=== PATIENT | male | born 1950 | race Caucasian/White ===

== ENCOUNTER 2017-10-30 11:16 | Emergency (ER) | payer OTHER ==
[2017-10-30 12:19] LABS: #Basophils 0.1 thou/uL (0.0-0.2); #Eosinphils 0.1 thou/uL (0.0-0.7); #Lymphocytes 1.2 thou/uL (1.20-3.40); #Monocytes 0.6 thou/uL (0.11-0.59); #Neutrophils 5.5 thou/uL (1.40-6.50); %Basophils 0.7 % (0.0-1.0); %Eosinophils 1.1 % (0.0-10.0); %Lymphocytes 15.5 % (21.0-51.0); %Monocytes 8.5 % (0.0-10.0); %Neutrophils 74.1 % (42.0-75.0); Hemoglobin 15.4 g/dL (14.0-18.0); Mean Corpuscular HGB CONC 33.6 g/dL (32.0-36.0); Mean Corpuscular Hemoglobin 30.1 pg (27.0-31.0); Mean Corpuscular Volume 89.7 fL (78.0-98.0); Mean Platelet Volume 8.1 fL (7.4-10.4); Platelet Count 192 thou/uL (130-400); RBC Distribution Width 10.5 % (11.5-14.5); Red Blood Cell (RBC) Count 5.11 mill/uL (4.70-6.10); White Blood Cell (WBC) Count 7.4 thou/uL (4.8-10.8)
[2017-10-30 12:33] LABS: ALT (SGPT) 18 U/L (8-55); AST (SGOT) 19 U/L (5-34); Albumin 4.2 g/dL (3.4-4.8); Alkaline Phosphatase 65 U/L (40-150); Anion Gap 12 mmol/L (10-20); BUN (Urea Nitrogen) 10 mg/dL (8.4-25.7); Bilirubin, Total 0.9 mg/dL (0.2-1.2); Calc. Creatinine Clearance 0 mL/min (70-130); Calcium 9.3 mg/dL (7.8-10.44); Carbon Dioxide 25 mmol/L (23-31); Chloride 107 mmol/L (98-107); Estimated GFR-MDRD Greater than 90; Globulin 2.4 g/dL (2.4-3.5); Glucose 100 mg/dL (80-115); Lipase 24 U/L (8-78); Protein, Total 6.6 g/dL (5.8-8.1); Sodium 140 mmol/L (136-145)
[2017-10-30 13:22] LABS: Bilirubin Negative (Negative); Blood, Urine Negative (Negative); Clarity Clear (Clear); Glucose, Urine (Dipstick) Negative (Negative); Leukocyte Negative (Negative); Nitrite Negative (Negative); Protein, Urine (Dipstick) Negative (Neg-Trace); Specific Gravity, Urine 1.015 (1.005-1.030); Urobilinogen 0.2 mg/dL (0.2-1.0)
== END 2017-10-30 13:06 | disposition home or self-care (01) ==
LOC: SCSER 11:16
DX: R10.31 Right lower quadrant pain (principal); E78.5 Hyperlipidemia, unspecified; Z86.73 Personal history of transient ischemic attack (TIA), and cerebral infarction without residual deficits
CPT/HCPCS: 36415; 80053; 81003; 83690; 85025; 99284

== ENCOUNTER 2018-12-22 17:53 | Emergency (ER) | payer OTHER ==
[~2018-12-22 17:53] MED LIST: Iopamidol 370 76% 100 ML VIAL ONE
[2018-12-22] MEDS ORDERED: Ondansetron PF 4 MG/2 ML Vial ONE (18:26)
[2018-12-22 18:35] LABS: #Basophils 0.1 thou/uL (0.0-0.2); #Eosinphils 0.2 thou/uL (0.0-0.7); #Lymphocytes 1.1 thou/uL (1.20-3.40); #Monocytes 1.1 thou/uL (0.11-0.59); %Basophils 0.8 % (0.0-1.0); %Eosinophils 1.8 % (0.0-10.0); %Lymphocytes 8.4 % (21.0-51.0); %Monocytes 8.9 % (0.0-10.0); %Neutrophils 80.1 % (42.0-75.0); Hemoglobin 11.1 g/dL (14.0-18.0); Mean Corpuscular Hemoglobin 30.6 pg (27.0-31.0); Mean Corpuscular Volume 89.9 fL (78.0-98.0); Mean Platelet Volume 7.3 fL (7.4-10.4); Platelet Count 247 thou/uL (130-400); RBC Distribution Width 11.3 % (11.5-14.5); Red Blood Cell (RBC) Count 3.64 mill/uL (4.70-6.10); White Blood Cell (WBC) Count 12.5 thou/uL (4.8-10.8)
[2018-12-22 18:45] LABS: ALT (SGPT) 21 U/L (8-55); AST (SGOT) 22 U/L (5-34); Albumin 4.1 g/dL (3.4-4.8); Alkaline Phosphatase 60 U/L (40-110); Anion Gap 16 mmol/L (10-20); BUN (Urea Nitrogen) 14 mg/dL (8.4-25.7); Bilirubin, Total 0.8 mg/dL (0.2-1.2); Calc. Creatinine Clearance 0 mL/min (70-130); Calcium 9.4 mg/dL (7.8-10.44); Carbon Dioxide 26 mmol/L (23-31); Chloride 102 mmol/L (98-107); Estimated GFR-MDRD 88; Globulin 2.4 g/dL (2.4-3.5); Glucose 132 mg/dL (80-115); Lipase 37 U/L (8-78); Potassium 3.9 mmol/L (3.5-5.1); Protein, Total 6.5 g/dL (5.8-8.1); Sodium 140 mmol/L (136-145)
[2018-12-22 18:48] LABS: Bilirubin Small (Negative); Blood, Urine Large (Negative); Glucose, Urine (Dipstick) Negative (Negative); Leukocyte Trace (Negative); Nitrite Negative (Negative); Protein, Urine (Dipstick) 100 mg/dL (Neg-Trace); Urobilinogen 0.2 mg/dL (Less than 2)
[2018-12-22 18:49] LABS: Clarity Hazy (Clear)
[2018-12-22 18:53] LABS: Bacteria/HPF 1+ HPF (None Seen); WBC/HPF 0-3 HPF (0-3)
[2018-12-22 18:56] LABS: Squamous Epithelial None Seen HPF (0-3)
--- NOTE | 2018-12-22 19:42 | CT ---
CT ABDOMEN AND PELVIS WITH CONTRAST: HISTORY: Abdominal pain. Postop prostatectomy three days ago. FINDINGS: ABDOMEN: The lung bases are clear of infiltrative process. Subsegmental atelectatic change is seen. The liver, spleen, pancreas and gallbladder regions appear unremarkable. The right and left adrenal glands and the right and left kidneys are normal in size. There is no sign ificant periaortic or mesenteric adenopathy. Small, subcentimeter periaortic nodes are present. There is a moderate amount of stool in the colon and the cecum is distended. It is a somewhat mobile cecum . It lies almost at the midline and there is evidence of free air. There is both retroperitoneal air and free air. The majority of this free air tracks along the anterior margin of the cecum, extending superiorly, along the liver, and I would favor that this is probably related to the cecum. If the vernon letty involved the abdominal cavity then possibly this is all just postop. I do not see any diverticul ar change. There is a moderate amount of stool in the colon but there are no signs of obstruction and no evidence of a volvulus. PELVIS: A Bee catheter is in place. There is some retroperitoneal air and some presacral fat strand ing. This was also felt to be most consistent with the surgery. Some fluid changes along the right lateral abdominal wall musculature is also felt to be postop. IMPRESSION: 1. Free air within the abdomen. I would think this is unlikely related to the surgery. The cecum is d istended and I think this is the most likely source. 2. Postoperative prostatectomy change. Other findings as noted above. 3. Findings telephoned to Dr. Dennis. CODE CR POS: [id number]
== END 2018-12-22 20:46 | disposition short-term general hospital (02) ==
LOC: SCSER 17:53
DX: K56.7 Ileus, unspecified (principal); E78.5 Hyperlipidemia, unspecified; E78.00 Pure hypercholesterolemia, unspecified; Z86.73 Personal history of transient ischemic attack (TIA), and cerebral infarction without residual deficits; Z79.899 Other long term (current) drug therapy; Z79.82 Long term (current) use of aspirin
CPT/HCPCS: 74177; 80053; 81003; 81015; 83605; 83690; 85025; 87086; 96361; 96374; J2405; Q9967

== ENCOUNTER 2020-08-25 15:41 | Inpatient (IN) | payer BC, MEDICARE ==
[2020-08-25] MEDS ORDERED: Lidocaine 1% w/Epinephrine 1:100K 20 ML VIAL ONE (15:59)
[2020-08-25] MEDS ORDERED: Bupivacaine 0.25% HCL 30 ML VIAL ONE (15:59)
[2020-08-25] MEDS ORDERED: ceFOXitin 1 GM VIAL ONE (16:31)
[2020-08-25] MEDS ORDERED: Sodium Chloride 0.9% 100 ML ONE (16:31)
[2020-08-25] MEDS ORDERED: Fentanyl 100 MCG/2 ML VIAL ONE ×4 (16:37→19:36)
[2020-08-25] MEDS ORDERED: PROPOFOL 200 MG/20 ML VIAL ONE (17:14)
[2020-08-25] MEDS ORDERED: Rocuronium Bromide 10 MG/ML (10ML VIAL) ONE (17:14)
[2020-08-25] MEDS ORDERED: PHENYLEPHRINE-NS 100 MCG/ML 10 ML SYRINGE ONE (17:14)
[2020-08-25] MEDS ORDERED: Lidocaine 1% PF 5 ML VIAL ONE (17:14)
[2020-08-25] MEDS ORDERED: Ondansetron PF 4 MG/2 ML Vial ONE (17:14)
[2020-08-25] MEDS ORDERED: Dexamethasone 20 MG/5 ML VIAL ONE (17:14)
[2020-08-25] MEDS ORDERED: SUGAMMADEX SODIUM 200 MG/2 ML VIAL ONE (17:53)
[2020-08-25] MEDS ORDERED: Ondansetron PF 4 MG/2 ML Vial IVP PRN (18:52)
[2020-08-25] MEDS ORDERED: hydrALAZINE 20 MG/ML VIAL SLOW IVP PRN (18:52)
[2020-08-25] MEDS ORDERED: Acetaminophen 325 MG TAB PO PRN (18:52)
[2020-08-25] MEDS ORDERED: Dextrose 5% in Water 1,000 ML IV PRN (18:52)
[2020-08-25] MEDS ORDERED: Promethazine HCl 25 MG/ML VIAL IM PRN ×2 (18:52→18:54)
[2020-08-25] MEDS ORDERED: Dextrose 50% Abboject 50 ML SYRINGE SLOW IVP PRN (18:52)
[2020-08-25] MEDS ORDERED: Morphine 4 MG/ML VIAL SLOW IVP PRN (18:52)
[2020-08-25] MEDS ORDERED: PACU-Morphine 4MG/ML VIAL SLOW IVP PRN (18:54)
[2020-08-25] MEDS ORDERED: Meperidine HCl/PF 25 MG/ML VIAL SLOW IVP PRN (18:54)
[2020-08-25] MEDS ORDERED: Promethazine HCl 25 MG/ML VIAL IVPB PRN (18:54)
[2020-08-25] MEDS ORDERED: traMADol HCl 50 MG TAB PO PRN (19:00)
[2020-08-25] MEDS ORDERED: Levofloxacin 500 mg/D5W 100 ml Premix Bag IVPB SCH (20:00)
[2020-08-25] MEDS: Lactated Ringer's 1,000 ML IV SCH (20:17)
[2020-08-25] MEDS: Famotidine/PF 20 mg/2ml Vial SLOW IVP SCH (20:28)
[2020-08-25] MEDS: Enoxaparin Sodium 40 MG/0.4 ML SYRINGE SC SCH (20:29)
[2020-08-25] MEDS: Famotidine 20 MG TAB PO SCH (20:29)
[2020-08-25 20:38] VITALS: BMI 23.5
[2020-08-25] MEDS: metroNIDAZOLE 500 MG in Premix Bag 1 BAG IVPB SCH (21:07)
[2020-08-25] MEDS: traMADol HCl 50 MG TAB PO SCH (23:32)
[2020-08-26 05:08] LABS: #Neutrophils 16.8 thou/uL (1.40-6.50); %Basophils 0.1 % (0.0-1.0); %Eosinophils 0.1 % (0.0-10.0); %Lymphocytes 5.3 % (21.0-51.0); %Monocytes 5.4 % (0.0-10.0); Hemoglobin 13.9 g/dL (14.0-18.0); Mean Corpuscular HGB CONC 33.7 g/dL (32.0-36.0); Mean Corpuscular Hemoglobin 30.8 pg (27.0-31.0); Mean Corpuscular Volume 91.6 fL (78.0-98.0); Mean Platelet Volume 7.3 fL (7.4-10.4); Platelet Count 298 thou/uL (130-400); RBC Distribution Width 12.3 % (11.5-14.5); Red Blood Cell (RBC) Count 4.53 mill/uL (4.70-6.10); White Blood Cell (WBC) Count 18.9 thou/uL (4.8-10.8)
[2020-08-26 05:19] LABS: Anion Gap 17 mmol/L (10-20); BUN (Urea Nitrogen) 11 mg/dL (8.4-25.7); Calc. Creatinine Clearance 87 mL/min (70-130); Calcium 8.8 mg/dL (7.8-10.44); Carbon Dioxide 21 mmol/L (23-31); Chloride 103 mmol/L (98-107); Glucose 132 mg/dL (83-110); Potassium 4.2 mmol/L (3.5-5.1); Sodium 137 mmol/L (136-145)
[2020-08-26] MEDS: metroNIDAZOLE 500 MG in Premix Bag 1 BAG IVPB SCH (05:24)
[2020-08-26] MEDS: traMADol HCl 50 MG TAB PO SCH ×3 (05:25→18:41)
[2020-08-26] MEDS: Lactated Ringer's 1,000 ML IV SCH (05:36)
[2020-08-26] MEDS: Famotidine 20 MG TAB PO SCH ×2 (09:35→21:12)
[2020-08-26] MEDS: Ibuprofen 200 MG TAB PO SCH ×3 (09:36→21:12)
[2020-08-26] MEDS: Famotidine/PF 20 mg/2ml Vial SLOW IVP SCH (09:43)
[2020-08-26] MEDS: metroNIDAZOLE 500 MG TAB PO SCH ×2 (15:34→21:12)
[2020-08-26] MEDS: Senokot S 8.6-50 MG TAB PO SCH (21:12)
[2020-08-26] MEDS: Enoxaparin Sodium 40 MG/0.4 ML SYRINGE SC SCH (21:12)
[2020-08-27] MEDS: traMADol HCl 50 MG TAB PO SCH ×5 (01:00→21:01)
[2020-08-27] MEDS: Polyethylene Glycol 3350 17 GM Packet PO SCH (09:27)
[2020-08-27] MEDS: Senokot S 8.6-50 MG TAB PO SCH ×2 (09:28→21:00)
[2020-08-27] MEDS: Famotidine 20 MG TAB PO SCH ×2 (09:28→21:00)
[2020-08-27] MEDS: metroNIDAZOLE 500 MG TAB PO SCH ×3 (09:28→21:00)
[2020-08-27] MEDS: Ibuprofen 200 MG TAB PO SCH ×3 (09:28→21:00)
[2020-08-27] MEDS ORDERED: Milk Of Magnesia 30 ML UDCUP PO SCH (16:00)
[2020-08-27] MEDS: Enoxaparin Sodium 40 MG/0.4 ML SYRINGE SC SCH ×2 (21:00→21:04)
[2020-08-28] MEDS: traMADol HCl 50 MG TAB PO SCH (05:35)
[2020-08-28] MEDS: Ibuprofen 200 MG TAB PO SCH (08:58)
[2020-08-28] MEDS: Famotidine 20 MG TAB PO SCH (08:58)
[2020-08-28] MEDS: Senokot S 8.6-50 MG TAB PO SCH (08:58)
[2020-08-28] MEDS: metroNIDAZOLE 500 MG TAB PO SCH (08:58)
[2020-08-28] MEDS: Polyethylene Glycol 3350 17 GM Packet PO SCH (08:59)
[2020-08-28] MEDS ORDERED: ASPIRIN 500 MG PO SCH (09:00)
[2020-08-28 11:03] VITALS: BP 129/79; TEMP 98.2
== END 2020-08-28 11:04 | disposition home or self-care (01) | DRG 340 ==
LOC: SDC 15:41 → SURG B 18:52
PROVIDERS: ADMIT Surgery; ATTEND Surgery
PROC: 0DTJ4ZZ Resection of Appendix, Percutaneous Endoscopic Approach (ICD-10-PCS; principal; 2020-08-25)
PROC: 0D9J4ZZ Drainage of Appendix, Percutaneous Endoscopic Approach (ICD-10-PCS; 2020-08-25)
DX: K35.33 Acute appendicitis with perforation, localized peritonitis, and gangrene, with abscess (principal); Z86.73 Personal history of transient ischemic attack (TIA), and cerebral infarction without residual deficits; Z98.890 Other specified postprocedural states; Z90.79 Acquired absence of other genital organ(s); Z88.0 Allergy status to penicillin; Z88.5 Allergy status to narcotic agent
CPT/HCPCS: 36415; 80048; 85025; 88304; 93005; 93010; J0694; J1100; J1650; J1956; J2405; J2704; J3010; J3490; S0020; S0028